=== PATIENT | female | born 1960 | race Caucasian/White ===

== ENCOUNTER 2016-12-17 14:19 | Emergency (ER) | payer OTHER ==
[~2016-12-17] VITALS: Ht 162.6 cm; Wt 86.2 kg
[2016-12-17 14:20] VITALS: BP 143/91; PULSE 129; RESP 19; TEMP 97.6; O2SAT 96
[2016-12-17] MEDS ORDERED: NACL 0.9% 1,000 ML IV ONE (14:45)
--- NOTE | 2016-12-17 15:05 | NUR ---
BROUGHT BACK TO BED #8 AND WILL ASSUME CARE
[2016-12-17 15:13] LABS: BASOPHILS % (AUTO) 0.8 % (0.0-2.0); EOSINOPHILS % (AUTO) 0.1 % (0.0-4.0); HEMATOCRIT 43.6 % (36-48); HEMOGLOBIN 14.8 g/dL (12.0-16.0); LYMPHOCYTES # (AUTO) 1.6 K/uL (1.0-5.5); LYMPHOCYTES % (AUTO) 52.4 % (20.5-51.5); MEAN CORPUSCULAR HEMOGLOBIN 30 pg (27-31); MEAN CORPUSCULAR HGB CONC 34 % (32-36); MEAN CORPUSCULAR VOLUME 88 fL (79.0-98.0); MONOCYTES # (AUTO) 0.3 K/uL (0.0-1.0); MONOCYTES % (AUTO) 8.3 % (1.7-9.3); NEUTROPHILS # (AUTO) 1.2 K/uL (1.8-7.7); NEUTROPHILS % (AUTO) 38.4 % (40.0-70.0); PLATELET COUNT (AUTO) 193 K/uL (130-430); RED BLOOD CELL COUNT(AUTO) 4.97 MIL/uL (4.2-6.2); RED CELL DISTRIBUTION WIDTH 13.9 % (9.0-15.0); WHITE BLOOD COUNT (AUTO) 3.1 K/uL (4.8-10.8)
--- NOTE | 2016-12-17 15:13 | NUR ---
DR ONEIL AT BEDSIDE FOR EVALUATION
[2016-12-17 15:34] LABS: CALCIUM 8.3 mg/dL (8.4-11.0); CREATININE 1.01 mg/dL (0.55-1.30); POTASSIUM 3.1 mmol/L (3.5-5.1)
[2016-12-17 15:39] LABS: ALBUMIN 3.9 g/dL (3.4-4.8); TOTAL BILIRUBIN 0.9 mg/dL (0.0-1.0); TOTAL PROTEIN, SERUM 7.9 g/dL (6.4-8.3)
--- NOTE | 2016-12-17 16:02 | NUR ---
RESTING QUIETLY, NIECE AT BEDSIDE. NO CHANGES.
--- NOTE | 2016-12-17 17:03 | NUR ---
DR ONEIL IN TO SEE PT FOR RE-EVALUATION
[2016-12-17 17:24] VITALS: BP 137/81; PULSE 97; RESP 16; TEMP 98.3; O2SAT 99
== END 2016-12-17 17:24 | disposition home or self-care (01) ==
LOC: SED 14:19
DX: H61.21 Impacted cerumen, right ear (principal); F10.129 Alcohol abuse with intoxication, unspecified; I10 Essential (primary) hypertension
CPT/HCPCS: 36415; 80053; 85025; 96360; 99284; J7030

== ENCOUNTER 2018-06-19 17:00 | Inpatient (IN) | payer OTHER ==
[~2018-06-19] VITALS: Ht 165.1 cm; Wt 84.8 kg
[2018-06-19 17:15] VITALS: BP_SYST 155
[2018-06-19] MEDS ORDERED: LORazepam 2 MG/ML VIAL (FOR ER USE) IVP ONE (17:45)
[2018-06-19] MEDS ORDERED: NACL 0.9% 1,000 ML IV ONE ×2 (17:45→19:00)
[2018-06-19] MEDS ORDERED: ONDANSETRON HCL 4 MG/2 ML VIAL IVP ONE (18:00)
[2018-06-19 18:06] LABS: MEAN CORPUSCULAR VOLUME 88 fL (79.0-98.0); NEUTROPHILS # (AUTO) 6.4 K/uL (1.8-7.7); WHITE BLOOD COUNT (AUTO) 7.5 K/uL (4.8-10.8)
[2018-06-19 18:11] LABS: CALCIUM 8.5 mg/dL (8.4-11.0); CREATININE 0.74 mg/dL (0.55-1.30)
[2018-06-19 18:14] LABS: PROTHROMBIN TIME 10.4 SECS (9.5-12.5)
[2018-06-19 18:16] LABS: ALBUMIN 4.2 g/dL (3.4-4.8); BASOPHILS # (AUTO) 0.1 K/uL (0.0-0.2); BASOPHILS % (AUTO) 1.9 % (0.0-2.0); EOSINOPHILS % (AUTO) 0.2 % (0.0-4.0); HEMATOCRIT 39.4 % (36-48); HEMOGLOBIN 13.6 g/dL (12.0-16.0); LYMPHOCYTES # (AUTO) 0.8 K/uL (1.0-5.5); LYMPHOCYTES % (AUTO) 11.2 % (20.5-51.5); MEAN CORPUSCULAR HEMOGLOBIN 31 pg (27-31); MEAN CORPUSCULAR HGB CONC 35 % (32-36); MONOCYTES # (AUTO) 0.2 K/uL (0.0-1.0); MONOCYTES % (AUTO) 2.2 % (1.7-9.3); NEUTROPHILS % (AUTO) 84.5 % (40.0-70.0); PLATELET COUNT (AUTO) 152 K/uL (130-430); RED BLOOD CELL COUNT(AUTO) 4.46 MIL/uL (4.2-6.2); RED CELL DISTRIBUTION WIDTH 12.8 % (9.0-15.0); TOTAL BILIRUBIN 1.3 mg/dL (0.0-1.0)
[2018-06-19 18:21] LABS: POTASSIUM 2.9 mmol/L (3.5-5.1)
[2018-06-19] MEDS ORDERED: KCL 20 mEq in 100 mL (PREMIX) 100 ML IV ONE (19:00)
[2018-06-19] MEDS ORDERED: POTASSIUM CHLORIDE 20 MEQ TAB.PRT.SR PO ONE (19:00)
[2018-06-19] MEDS ORDERED: ASPIRIN 81 MG TAB.CHEW PO ONE (19:00)
[2018-06-19] MEDS ORDERED: FOLIC ACID 1 MG, THIAMINE HCL 100 MG, MAGNESIUM SULFATE 1 GM, MVI 10 ML in NACL 0.9% 1,... IV ONE (19:00)
[2018-06-19 19:51] VITALS: BP_SYST 148
[2018-06-19] MEDS ORDERED: PROP40TA7 PO (20:19)
[2018-06-19] MEDS: chlordiazePOXIDE HCL 25 MG CAPSULE PO SCH (23:48)
[2018-06-20 04:12] VITALS: BP_SYST 141
[2018-06-20 06:32] LABS: CALCIUM 8.3 mg/dL (8.4-11.0); CREATININE 0.56 mg/dL (0.55-1.30)
[2018-06-20 06:45] LABS: BASOPHILS % (AUTO) 0.9 % (0.0-2.0); EOSINOPHILS % (AUTO) 0.5 % (0.0-4.0); HEMATOCRIT 38.9 % (36-48); HEMOGLOBIN 13.4 g/dL (12.0-16.0); LYMPHOCYTES # (AUTO) 1.1 K/uL (1.0-5.5); LYMPHOCYTES % (AUTO) 23.3 % (20.5-51.5); MEAN CORPUSCULAR HEMOGLOBIN 30 pg (27-31); MEAN CORPUSCULAR HGB CONC 34 % (32-36); MEAN CORPUSCULAR VOLUME 89 fL (79.0-98.0); MONOCYTES # (AUTO) 0.2 K/uL (0.0-1.0); MONOCYTES % (AUTO) 4.2 % (1.7-9.3); NEUTROPHILS # (AUTO) 3.6 K/uL (1.8-7.7); NEUTROPHILS % (AUTO) 71.1 % (40.0-70.0); PLATELET COUNT (AUTO) 123 K/uL (130-430); RED CELL DISTRIBUTION WIDTH 13.3 % (9.0-15.0); WHITE BLOOD COUNT (AUTO) 4.9 K/uL (4.8-10.8)
[2018-06-20 06:47] LABS: ALBUMIN 3.6 g/dL (3.4-4.8); TOTAL BILIRUBIN 1.2 mg/dL (0.0-1.0)
[2018-06-20 07:52] VITALS: BP_SYST 151
[2018-06-20] MEDS: chlordiazePOXIDE HCL 25 MG CAPSULE PO SCH ×4 (09:00→20:06)
[2018-06-20] MEDS: PANTOPRAZOLE SODIUM 40 MG TAB PO SCH (09:00)
[2018-06-20] MEDS ORDERED: chlordiazePOXIDE HCL 25 MG CAPSULE ONE (09:05)
[2018-06-20] MEDS: LORazepam 2 MG/ML VIAL IVP PRN ×3 (11:14→21:03)
[2018-06-20 12:17] VITALS: BP_SYST 147
[2018-06-20 16:49] VITALS: BP_SYST 142
[2018-06-20 20:00] VITALS: BP_SYST 144
[2018-06-20 23:29] VITALS: BP_SYST 119
[2018-06-21] MEDS: LORazepam 2 MG/ML VIAL IVP PRN ×5 (05:40→23:43)
[2018-06-21 06:38] LABS: CALCIUM 8.8 mg/dL (8.4-11.0); CREATININE 0.65 mg/dL (0.55-1.30)
[2018-06-21 06:49] LABS: ALBUMIN 3.5 g/dL (3.4-4.8); THYROID STIMULATING HORMONE 3.61 uIu/mL (0.36-3.74); TOTAL BILIRUBIN 1.2 mg/dL (0.0-1.0)
[2018-06-21 06:55] LABS: POTASSIUM 2.8 mmol/L (3.5-5.1)
[2018-06-21] MEDS ORDERED: POTASSIUM CHLORIDE 20 MEQ TAB.PRT.SR PO ONE (07:00)
[2018-06-21] MEDS ORDERED: POTASSIUM CHLORIDE 40 MEQ in NS 250 ML IV ONE (07:00)
[2018-06-21 07:20] LABS: BASOPHILS % (AUTO) 0.2 % (0.0-2.0); EOSINOPHILS % (AUTO) 1.2 % (0.0-4.0); HEMOGLOBIN 14.7 g/dL (12.0-16.0); LYMPHOCYTES % (AUTO) 24.2 % (20.5-51.5); MEAN CORPUSCULAR HEMOGLOBIN 31 pg (27-31); MEAN CORPUSCULAR HGB CONC 35 % (32-36); MEAN CORPUSCULAR VOLUME 89 fL (79.0-98.0); MONOCYTES # (AUTO) 0.1 K/uL (0.0-1.0); MONOCYTES % (AUTO) 3.1 % (1.7-9.3); NEUTROPHILS # (AUTO) 2.9 K/uL (1.8-7.7); NEUTROPHILS % (AUTO) 71.3 % (40.0-70.0); PLATELET COUNT (AUTO) 106 K/uL (130-430); RED CELL DISTRIBUTION WIDTH 13.2 % (9.0-15.0)
[2018-06-21] MEDS: chlordiazePOXIDE HCL 25 MG CAPSULE PO SCH ×4 (08:03→20:06)
[2018-06-21] MEDS: PANTOPRAZOLE SODIUM 40 MG TAB PO SCH (08:03)
[2018-06-21 08:12] VITALS: BP_SYST 136
[2018-06-21] MEDS ORDERED: FOLIC ACID 1 MG TABLET PO ONE (10:00)
[2018-06-21] MEDS ORDERED: THIAMINE HCL 100 MG TABLET PO ONE (10:00)
[2018-06-21 13:08] VITALS: BP_SYST 138
[2018-06-21 16:00] VITALS: BP_SYST 144
[2018-06-21 20:29] VITALS: BP_SYST 148
[2018-06-22] VITALS: BP_SYST 129
[2018-06-22] MEDS: LORazepam 2 MG/ML VIAL IVP PRN ×3 (05:01→12:20)
[2018-06-22] MEDS ORDERED: FLU VACC QS 2017-18(36MOS+)/PF 0.5 ML/SYR SYRINGE I.M. PRN (07:00)
[2018-06-22 07:29] LABS: ALBUMIN 3.2 g/dL (3.4-4.8); CREATININE 0.77 mg/dL (0.55-1.30); POTASSIUM 3.3 mmol/L (3.5-5.1); TOTAL BILIRUBIN 1.1 mg/dL (0.0-1.0)
[2018-06-22 08:00] VITALS: BP_SYST 135
[2018-06-22] MEDS: PANTOPRAZOLE SODIUM 40 MG TAB PO SCH (08:34)
[2018-06-22] MEDS: chlordiazePOXIDE HCL 25 MG CAPSULE PO SCH ×2 (08:34→13:00)
[2018-06-22] MEDS ORDERED: THIAMINE HCL 100 MG TABLET PO SCH (09:00)
[2018-06-22] MEDS ORDERED: FOLIC ACID 1 MG TABLET PO SCH (09:00)
[2018-06-22 12:35] VITALS: BP_SYST 146
[2018-06-22 14:22] VITALS: BP_SYST 146
[2018-06-22] MEDS ORDERED: POTASSIUM CHLORIDE 20 MEQ TAB.PRT.SR PO ONE (14:30)
== END 2018-06-22 14:45 | disposition home or self-care (01) | DRG 281 ==
LOC: SED 17:00 → STU 19:00
PROVIDERS: ADMIT Internal Medicine Hospice and Palliative Medicine; ATTEND Internal Medicine Hospice and Palliative Medicine
DX: I21.A1 Myocardial infarction type 2 (principal); F10.231 Alcohol dependence with withdrawal delirium; E87.1 Hypo-osmolality and hyponatremia; F10.221 Alcohol dependence with intoxication delirium; K29.00 Acute gastritis without bleeding; I10 Essential (primary) hypertension; E87.6 Hypokalemia; K29.20 Alcoholic gastritis without bleeding; F41.9 Anxiety disorder, unspecified; K70.10 Alcoholic hepatitis without ascites; Y90.9 Presence of alcohol in blood, level not specified; W19.XXXA Unspecified fall, initial encounter; Y93.89 Activity, other specified; Y92.89 Other specified places as the place of occurrence of the external cause; Z98.891 History of uterine scar from previous surgery; Z81.1 Family history of alcohol abuse and dependence; Y99.8 Other external cause status
CPT/HCPCS: 36415; 71045; 73030; 80053; 80061; 82550-TC; 82553-TC; 83690-TC; 84443-TC; 84484; 85025; 85610-TC; 85730-TC; 93005; 93306; G0482; J2060; J2405; J3411; J3475; J3480; J3490; J7030; J7050

== ENCOUNTER 2020-09-16 10:39 | Emergency (ER) | payer OTHER, SELFPAY ==
[~2020-09-16] VITALS: Ht 165.1 cm; Wt 77.1 kg
[~2020-09-16 10:39] MED LIST: PROP40TA7 PO
[2020-09-16 11:56] VITALS: BP_SYST 112
--- NOTE | 2020-09-16 12:26 | NUR ---
ER at bedside examining patient.
[2020-09-16 12:58] LABS: BASOPHILS # (AUTO) 0.1 K/uL (0.0-0.2); BASOPHILS % (AUTO) 1.2 % (0.0-2.0); EOSINOPHILS # (AUTO) 0.1 K/uL (0.0-0.4); EOSINOPHILS % (AUTO) 0.6 % (0.0-4.0); HEMATOCRIT 48.8 % (36-48); HEMOGLOBIN 16.7 g/dL (12.0-16.0); LYMPHOCYTES # (AUTO) 1.6 K/uL (1.0-5.5); LYMPHOCYTES % (AUTO) 18.8 % (20.5-51.5); MEAN CORPUSCULAR HEMOGLOBIN 32 pg (27-31); MEAN CORPUSCULAR HGB CONC 34 % (32-36); MEAN CORPUSCULAR VOLUME 93 fL (79.0-98.0); MONOCYTES # (AUTO) 0.4 K/uL (0.0-1.0); MONOCYTES % (AUTO) 5.1 % (1.7-9.3); NEUTROPHILS # (AUTO) 6.1 K/uL (1.8-7.7); NEUTROPHILS % (AUTO) 74.3 % (40.0-70.0); PLATELET COUNT (AUTO) 395 K/uL (130-430); RED BLOOD CELL COUNT(AUTO) 5.24 MIL/uL (4.2-6.2); RED CELL DISTRIBUTION WIDTH 15.9 % (9.0-15.0); WHITE BLOOD COUNT (AUTO) 8.3 K/uL (4.8-10.8)
[2020-09-16 13:18] LABS: ANION GAP 15 (5-15); CHLORIDE 93 mmol/L (98-107); CREATININE 0.82 mg/dL (0.55-1.30); GLUCOSE 118 mg/dL (70-99); SODIUM SERUM 129 mmol/L (136-145); UREA NITROGEN, BLOOD 8 mg/dL (8-21)
[2020-09-16 13:19] LABS: GFR AFRICAN AMERICAN 91 mL/min (>90)
[2020-09-16 13:32] LABS: ALANINE AMINOTRANSFERASE 75 U/L (12-78); ALBUMIN 3.5 g/dL (3.4-4.8); ALCOHOL, BLOOD < 3 mg/dL (<10); ASPARTATE AMINOTRANSFERASE 153 U/L (10-37); LIPASE 429 U/L (73-393); POTASSIUM 2.6 mmol/L (3.5-5.1); TOTAL BILIRUBIN 1.6 mg/dL (0.0-1.0)
[2020-09-16] MEDS ORDERED: POTASSIUM CHLORIDE 20 MEQ/PKT PACKET PO ONE ×2 (14:00→15:30)
[2020-09-16] MEDS ORDERED: ONDANSETRON HCL 4 MG/2 ML VIAL IVP ONE (14:00)
[2020-09-16] MEDS ORDERED: NACL 0.9% 1,000 ML IV ONE (14:00)
[2020-09-16] MEDS ORDERED: KCL 20 mEq in 100 mL (PREMIX) 100 ML IV ONE (14:00)
--- NOTE | 2020-09-16 14:00 | NUR ---
Pt brought back to [facility]. Walked in to ER with c/o n/v x4 weeks and headache. V/S Stable, pt is afebrile. Currently resting in bed, will continue to monitor.
--- NOTE | 2020-09-16 14:20 | NUR ---
ER Dr. Kenyon at bedside examining patient.
[2020-09-16] MEDS ORDERED: KETOROLAC TROMETHAMINE 30 MG VIAL IVP ONE (14:30)
--- NOTE | 2020-09-16 14:30 | NUR ---
# 20 gauge angiocath placed to LAC and RAC. Use of asceptic technique. Opsite placed over site. Blood return noted. Flushed with 10 cc of normal saline. No evidence of infiltration noted. Patient tolerated well.
[2020-09-16 17:23] LABS: POTASSIUM 3.4 mmol/L (3.5-5.1)
[2020-09-16 17:24] LABS: CALCIUM 8.4 mg/dL (8.4-11.0); CREATININE 0.91 mg/dL (0.55-1.30)
[2020-09-16 17:39] VITALS: BP_SYST 112
--- NOTE | 2020-09-16 17:41 | NUR ---
Patient given written and verbal discharge instructions and verbalizes understanding. ER MD discussed with patient the results and treatment provided. Patient in stable condition. ID arm band removed. IV catheter removed intact and dressing applied, no active bleeding. Rx of Tramadol, Prilosec and Zofran given. Patient educated on pain management and to follow up with PMD. Pain Scale 0. Opportunity for questions provided and answered. Medication side effect fact sheet provided.
== END 2020-09-16 17:41 | disposition home or self-care (01) ==
LOC: SED 10:39
DX: K80.50 Calculus of bile duct without cholangitis or cholecystitis without obstruction (principal); E87.6 Hypokalemia; E86.0 Dehydration; I10 Essential (primary) hypertension; F10.239 Alcohol dependence with withdrawal, unspecified
CPT/HCPCS: 36415; 76700; 80048; 80053; 83690; 85025; 93005; 96365; 96366; 96375; 99285; G0482; J1885; J2405; J3480; J7030